=== PATIENT | female | born 1940 | race Caucasian/White ===

== ENCOUNTER 2020-06-20 12:16 | Outpatient (CLI) | payer MEDICARE, SELFPAY ==
--- NOTE | ~2020-06-20 | DEXA_ITS ---
BMD(1) Young-Adult(2) Age-Matched(3) Region (g/cm2) T-score Z-score WHO Classification L1 1.206 0.5 2.6 Normal L2 1.365 1.3 3.3 Normal L3 1.373 1.3 3.3 Normal L4 1.363 1.1 3.2 Normal L1-L4 1.328 1.1 3.1 Normal Trend: L1-L4 Change vs Change vs Measured Age BMD(1) Baseline Previous Date (years) (g/cm2) (%) (%) 06/20/2020 [age] 1.328 -12.5* -12.5* 04/07/2016 [age] 1.517 baseline - * - Indicates significant change based on 95% confidence interval. 1 - Statistically 68% of repeat scans fall within 1SD (+- 0.010 g/cm2 for AP Spine L1-L4) 2 - [place] (Combined NHANES (ages 20-30) / Rebiotix (ages 20-40)) AP Spine Reference Population (v112) 3 - Matched for Age, Weight (females 25-100 kg), Ethnic 11 - World Health Organization - Definition of Osteoporosis and Osteopenia for Women: Normal = T-score at or above -1.0 SD; Osteopenia = T-score between -1.0 and -2.5 SD; Osteoporosis = T-score at or below -2.5 SD; (WHO definitions only apply when a young healthy Women reference database is used to determine T-scores.) Printed: 06/20/2020 12:53:17 PM (13.60)76:3.00:50.00:12.0 0.00:8.70 0.60x1.05 19.0:%Fat=24.3% 0.00:0.00 0.00:0.00 Filename: [email or web address] Scan Mode: Standard;Shoopcan 37.0 [employer] [id number] BMD(1) Young-Adult(2,7) Age-Matched(3) Region (g/cm2) T-score Z-score WHO Classification Neck Left 0.672 -2.6 -0.3 Osteoporosis Right 0.641 -2.9 -0.5 Osteoporosis Mean 0.656 -2.7 -0.4 Osteoporosis Difference 0.030 -0.2 -0.2 - Total Left 0.637 -2.9 -0.7 Osteoporosis Right 0.642 -2.9 -0.7 Osteoporosis Mean 0.640 -2.9 -0.7 Osteoporosis Difference 0.005 0.0 0.0 - Hip Wilson Length Comparison (mm) (Right = 103.5 mm) (Mean = 107.8 mm) (Left = 104.6 mm) Trend: Total Mean Change vs Change vs Measured Age BMD(1) Baseline Previous Date (years) (g/cm2) (%) (%) 06/20/2020 [age] 0.640 -30.7* -22.1* 09/19/2013 [age] 0.822 -10.9* -10.9* 08/23/2011 70.7 0.923 baseline - * - Indicates significant change based on 95% confidence interval. 1 - Statistically 68% of repeat scans fall within 1SD (+- 0.010 g/cm2 for DualFemur Total) 2 - [place] (Combined NHANES (ages 20-30) / Rebiotix (ages 20-40)) Femur Reference Population (v112) 3 - Matched for Age, Weight (females 25-100 kg), Ethnic 7 - DualFemur Total T-score difference is 0.0. Asymmetry is None. 11 - World Health Organization - Definition of Osteoporosis and Osteopenia for Women: Normal = T-score at or above -1.0 SD; Osteopenia = T-score between -1.0 and -2.5 SD; Osteoporosis = T-score at or below -2.5 SD; (WHO definitions only apply when a young healthy Women reference database is used to determine T-scores.) Printed: 06/20/2020 12:53:17 PM (13.60); Filename: [email or web address]; Right Femur; 16.7:%Fat=30.5%; Neck Angle (deg)= 59; Scan Mode: Standard 37.0 uGy; Left Femur; 16.1:%Fat=30.7%; Neck Angle (deg)= 68; Scan Mode: Standard 37.0 uGy [employer] [id number] Dear Po Dubose, Your patient Shun Lorenzo completed a BMD test on 06/20/2020 using the [employer] DXA System (analysis version: 13.60) manufactured by [employer]. The following summarizes the results of our evaluation. PATIENT BIOGRAPHICAL: Na
== END 2020-06-20 12:17 | disposition home or self-care (01) ==
LOC: CHSIMG 12:17
PROVIDERS: PCP Internal Medicine; Visit Provider Internal Medicine
DX: M81.0 Age-related osteoporosis without current pathological fracture (principal)
CPT/HCPCS: 77080

== ENCOUNTER 2020-06-30 11:45 | Outpatient (CLI) | payer MEDICARE, SELFPAY ==
--- NOTE | ~2020-06-30 | XR_ITS ---
XR hip LT min 2V DATE: 06/30/2020 12:21 INDICATION: Left hip pain TECHNIQUE: AP, lateral, crosstable lateral views of left hip COMPARISON: None FINDINGS: No fracture or dislocation, avascular necrosis or bone destruction of the left hip. There i s prominent osteoarthritic change including prominent spurring at the left hip joint. Normal alignment at the left sacroiliac joint and pubic symphysis. Moderate osteopenia is suggested. IMPRESSION: Left to posterior arthritis Osteopenia Reviewed, dictated and finalized at location B.
== END 2020-06-30 11:46 | disposition home or self-care (01) ==
LOC: CHSIMG 11:50
PROVIDERS: PCP Family Medicine; Visit Provider Family Medicine
DX: M25.552 Pain in left hip (principal)
CPT/HCPCS: 73502

== ENCOUNTER 2020-08-08 08:57 | Outpatient (CLI) | payer MEDICARE, SELFPAY ==
--- NOTE | 2020-08-08 09:10 | PC.NURSE ---
PT TO ROOM 202 AMB PER SELF. A&OX3. PROLIA INSTRUCTIONS GIVEN WRITTEN AND ORALLY. PT STATES UNDERSTANDING. INJECTION GIVEN PER PROTOCOL PT TOLERATED WELL. WAITED 15 MINUTES TO MONITOR FOR REACTION. NO REACTION NOTED. PT DISCHARGED TO HOME AMB PER SELF WITHOUT COMPLAINTS.
[2020-08-08] MEDS: DENOSUMAB 60 MG/ML SYRINGE SUB-Q (09:13)
== END 2020-08-08 08:58 | disposition home or self-care (01) ==
PROVIDERS: PCP Internal Medicine; Visit Provider Internal Medicine
DX: M81.0 Age-related osteoporosis without current pathological fracture (principal)
CPT/HCPCS: 96372; J0897

== ENCOUNTER 2020-10-27 13:26 | Outpatient (CLI) | payer MEDICARE, SELFPAY ==
--- NOTE | ~2020-10-27 | MM_ITS ---
EXAMINATION: MM screening shade BI w bradley HISTORY: Screening mammogram TECHNIQUE: Craniocaudal and mediolateral oblique 3-D tomosynthesis images were obtained and synthetic 2-D images were generated. CAD analysis was submitted and interpreted. COMPARISON: 10/26/2019, 10/23/2018 bilateral digital screening mammogram examinations BREAST PARENCHYMAL COMPOSITION: There are scattered areas of fibroglandular density. FINDINGS: Chronic left breast volume loss and focal calcified fat necrosis and retraction secondary t o left partial mastectomy for breast malignancy. There is no evidence of suspicious mass, calcificat ion, or architectural distortion to suggest malignancy in either breast. There has been no suspicious interval change. IMPRESSION: 1. No mammographic evidence of malignancy. 2. Recommend routine screening mammography in one year. BI-RADS Category 2: Benign finding(s). Reviewed, dictated and finalized at location A. GEMENT LIAISON
== END 2020-10-27 13:27 | disposition home or self-care (01) ==
PROVIDERS: PCP Internal Medicine; Visit Provider Internal Medicine
DX: Z12.31 Encounter for screening mammogram for malignant neoplasm of breast (principal)
CPT/HCPCS: 77063; 77067

== ENCOUNTER 2021-06-12 07:11 | Outpatient (CLI) | payer MEDICARE, SELFPAY ==
--- NOTE | ~2021-06-12 | CT_ITS ---
EXAMINATION: CT chest abdomen pelvis w con DATE: 06/12/2021 08:35 INDICATION: Unexplained weight loss. History of breast cancer. TECHNIQUE: Computed tomography (CT) of the chest, abdomen, and pelvis was performed with 100 cc Omnip aque 350 intravenous contrast. Automated exposure control and iterative reconstruction technique were employed. Exam dose: 397.22 mGy-cm total exam DLP. COMPARISON: 11/19/2015 chest 2 view examination FINDINGS: CHEST CT: Postsurgical changes of the left breast. Calcified left lower lobe pulmonary granuloma. Scattered occasional approximately 4 mm or smaller non specific pulmonary opacities. No pulmonary infiltrate or consolidation. Normal heart size. No pericardial or pleural effusion. No thoracic aortic aneurysm or dissection. There is aortic and great vessel calcification. There is s ome shoddy nonenlarged superior mediastinal and prevascular lymph nodes. No hilar mass lesion or lymp hadenopathy. ABDOMEN/PELVIS CT: The gallbladder is distended. No gallbladder wall thickening or pericholecystic fluid or fat strandin g is detected. No hepatic space-occupying mass lesion or bile duct dilatation. No pancreatic mass lesion or ductal d ilatation. Normal splenic size. Normal morphology of the left adrenal gland. Approximately 1.5 cm right adrenal myelolipoma. The right kidney is absent. There is prominent left renal atrophy. There is extensive left nephrolithiasis. 7.5, 7 and 14 mm left renal cysts. No left ureteral calculus or hydroureteronephrosis. Retroverted uterus. The adnexal areas are unremarkable. There are at least 2 and possibly more intraluminal nondependent soft tissue lesions of the urinary b ladder, measuring up to 2.4 x 1.5 cm dimension, suggesting urinary bladder malignancy. Urological con sultation is recommended. There is fluid distention of much of the small bowel, with small bowel air-fluid levels. Consider sma ll bowel series. Diverticulosis of the sigmoid and descending colon; no CT evidence of diverticulitis. The tortuous si gmoid colon is somewhat difficult to track. Given the history of unexplained weight loss, consider ba rium enema or colonoscopy. No intraperitoneal free air. Infrarenal abdominal aortic aneurysm measures up to approximately 3.3 cm dimension. No intraperitoneal or retroperitoneal or pelvic mass lesion or adenopathy or ascites is evident. Degenerative changes of the cervical, thoracic and lumbar spine. There are prominent degenerative deborah nges of the apophyseal joints of the lumbar and lumbosacral area with associated grade 1 anterolisthe sis at L4-5. Prominent degenerative disc disease is noted at L2-3 and L5-S1. Bilateral hip osteoarthritis. IMPRESSION: Multiple up to 2.4 cm intraluminal bladder masses, suggesting bladder malignancy. Urolog y consultation is recommended Status post left partial mastectomy for breast cancer 1.5 cm right adrenal myelolipoma Absent right kidney Prominent left renal atrophy Left renal cysts measuring up to 14 mm Extensive left nephrolithiasis; no ureteral calculus or hydroureteronephrosis Retroverted uterus Diverticulosis of the left colon; no CT evidence of diverticulitis Fluid levels are noted in the small bowel and colon; consider small bowel series and barium enema or colonoscopy as clinically appropriate Reviewed, dictated and finalized at Location A. Reviewed, dictated and finalized at location B. IMPRESSION: Multiple up to 2.4 cm intraluminal bladder masses, suggesting blad erica malignancy. Urology consultation is recommended Status post left partial mastectomy for breast cancer 1.5 cm right adrenal myelolipoma Absent right kidney Prominent left renal atro
[2021-06-12 07:52] LABS: Estimated Glomerular Filt Rate 12
== END 2021-06-12 07:12 | disposition home or self-care (01) ==
PROVIDERS: PCP Internal Medicine; Visit Provider Internal Medicine
DX: Z85.3 Personal history of malignant neoplasm of breast (principal); R63.4 Abnormal weight loss; Z99.2 Dependence on renal dialysis
CPT/HCPCS: 71260; 74177; Q9967

== ENCOUNTER 2021-07-23 13:09 | Outpatient (CLI) | payer MEDICARE, SELFPAY ==
--- NOTE | ~2021-07-23 | CT_ITS ---
EXAMINATION: CT abdomen pelvis w con DATE: 07/23/2021 14:15 INDICATION: Generalized abdominal pain. Diarrhea. TECHNIQUE: Computed tomography (CT) of the abdomen and pelvis was performed with 100 mL Omnipaque 350 intravenous contrast. Automated exposure control and iterative reconstruction technique were employe d. The dose-length product was 390.92 mGy-cm. COMPARISON: CT abdomen and pelvis 06/12/2021 FINDINGS: The visualized portions of the lung bases demonstrate mild atelectasis. No pleural effusion . The heart size is normal. There are coronary artery calcifications. No pericardial effusion. The li flavio is normal. The gallbladder is distended. The spleen, pancreas, and adrenal glands are normal. Rig ht kidney is absent. There is severe atrophy of left kidney. There are cysts in left kidney measuring up to 9 mm. 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 Stool distends the rectum. There is liquid stool in the colon correlating with the symptom of diarrhea. The appendix is not visualized. T here is mild mesenteric lymphadenopathy. There is a 3.5 cm fusiform infrarenal aortic aneurysm. There is a small volume of pelvic ascites. Body wall edema is noted. Again seen are masses in the bladder. There is subcutaneous inflammation superficial to the sacrum and coccyx. No evidence of osteomyeliti s. There is severe lumbar spondylosis. IMPRESSION: 1. Masses in the bladder suspicious for urothelial carcinoma. 2. Gallbladder distention, which may secondary to fasting. Correlate with physical exam to exclude ac newtok cholecystitis. 3. 3.5 cm fusiform infrarenal aortic aneurysm. 4. Small volume of pelvic ascites. Reviewed, dictated and finalized at location A. IMPRESSION: 1. Masses in the bladder suspicious for urothelial carcinoma. 2. Gallbladder distention, which may secondary to fasting. Correlate with physi tony exam to exclude acute cholecystitis. 3. 3.5 cm fusiform infrarenal aortic aneurysm. 4. Small volume of pelvic ascites.
[2021-07-23 13:36] LABS: Hematocrit 29.3 % (35.0-42.0); Hemoglobin 9.9 g/dL (11.7-13.8); Mean Corpuscular HGB Conc 33.8 g/dL (32.0-36.0); Mean Corpuscular Hemoglobin 34.5 pg (27.0-31.0); Mean Corpuscular Volume 102.1 fL (78.0-102.0); Mean Platelet Volume 8.8 fl (9.2-11.8); Platelet Count Result 200 K/mm3 (150-420); Red Blood Count 2.87 M/mm3 (4.20-5.40); Red Cell Distribution Width 12.6 % (11.6-14.4)
[2021-07-23 13:44] LABS: Estimated Glomerular Filt Rate 18; White Blood Count 27.9 K/mm3 (4.8-10.8)
[2021-07-23 13:53] LABS: Lactic Acid 1.1 mmol/L (0.4-2.0)
[2021-07-23 14:27] LABS: Band Neutrophils Percent 0 % (0-6); Lymphocytes Absolute Manual 1.39 K/mm3 (1.1-4.5); Lymphocytes Percent Manual 5 % (18-44); Monocytes Absolute Manual 0.55 K/mm3 (0.1-0.90); Monocytes Percent Manual 2 % (3-9); Neutrophils Absolute Manual 25.94 K/mm3 (1.7-7.2); Neutrophils Percent Manual 93 % (46-73); Platelet Estimate Adequate (Adequate); Total Cells Counted 100
== END 2021-07-23 13:10 | disposition home or self-care (01) ==
PROVIDERS: PCP Internal Medicine; Visit Provider Internal Medicine
DX: R19.7 Diarrhea, unspecified (principal); D72.829 Elevated white blood cell count, unspecified; R63.4 Abnormal weight loss; N32.89 Other specified disorders of bladder
CPT/HCPCS: 74177; 83605; 85025; 85060; 87040; Q9967

== ENCOUNTER 2021-07-24 13:38 | Outpatient (NON) | payer MEDICARE, SELFPAY | END 2021-07-24 13:39 | disposition home or self-care (01) | LOC: CHSLAB 13:40 | PROVIDERS: Visit Provider Internal Medicine | DX: R19.7 Diarrhea, unspecified (principal); D72.829 Elevated white blood cell count, unspecified; R63.4 Abnormal weight loss | CPT/HCPCS: 87045; 87324; 87427 ==

== ENCOUNTER 2021-07-28 07:36 | Outpatient (CLI) | payer MEDICARE, SELFPAY ==
--- NOTE | ~2021-07-28 | US_ITS ---
EXAMINATION: US arterial ankle brachial ind DATE: 07/28/2021 13:31 INDICATION: Peripheral arterial occlusive disease to the bilateral lower limbs lower limb swelling. TECHNIQUE: Segmental pressures and plethysmographic and Doppler waveforms of the brachial and lower e xtremity arteries were obtained. COMPARISON: None. FINDINGS: Left brachial artery pressure of 90 mm Hg. The right brachial artery pressure was unable to be obtain ed due to the presence of a reported right upper arm dialysis graft. The right ankle-brachial index (MENDOZA) is 1.13 (normal >= 0.9-1.0). The right great toe-brachial index (TBI) is 0.58 (normal >= 0.65). Arterial Doppler waveforms are biphasic with brisk systolic upstrokes at both the right posterior tibial and dorsalis pedis arteries. The left MENDOZA is 1.00. The left TBI is 0.60. Arterial Doppler waveforms are biphasic with brisk systol ic upstrokes at both the left posterior tibial and dorsalis pedis arteries. IMPRESSION: 1. 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 Reviewed, dictated and finalized at location A. IMPRESSION: 1. Mild arterial occlusive disease to bilateral lower limbs with mildly decreas ed bilateral TBIs.
[2021-07-28 07:50] LABS: Basophils Absolute Auto 0.03 K/mm3 (0.00-0.10); Basophils Percent Auto 0.3 % (0.0-1.0); Eosinophils Absolute Auto 0.19 K/mm3 (0.02-0.50); Eosinophils Percent Auto 1.8 % (1.0-6.0); Hematocrit 29.1 % (35.0-42.0); Hemoglobin 9.3 g/dL (11.7-13.8); Immature Granulocyte Absolute 0.15 K/mm3 (0.00-0.00); Immature Granulocyte Percent A 1.4 % (0.0-0.0); Lymphocytes Absolute Auto 1.08 K/mm3 (1.10-4.50); Lymphocytes Percent Auto 10.4 % (18.0-42.0); Mean Corpuscular Hemoglobin 33.7 pg (27.0-31.0); Mean Corpuscular Volume 105.4 fL (78.0-102.0); Monocytes Absolute Auto 0.54 K/mm3 (0.10-0.90); Monocytes Percent Auto 5.2 % (2.0-11.0); Neutrophils Absolute Auto 8.4 K/mm3 (1.7-7.2); Neutrophils Percent Auto 80.9 % (50.0-70.0); Platelet Count Result 165 K/mm3 (150-420); Red Blood Count 2.76 M/mm3 (4.20-5.40); Red Cell Distribution Width 13.7 % (11.6-14.4); White Blood Count 10.4 K/mm3 (4.8-10.8)
[2021-07-28 08:04] LABS: Alanine Aminotransferase 56 U/L (14-59); Albumin Level 1.6 g/dL (3.4-5.0); Alkaline Phosphatase 148 U/L (46-116); Anion Gap 3 mmol/L (8-16); Aspartate Amino Transferase 60 U/L (15-37); Bilirubin,Total 0.2 mg/dL (0.00-1.00); Blood Urea Nitrogen 27 mg/dL (7-18); Calcium 6.5 mg/dL (8.5-10.1); Carbon Dioxide 32 mmol/L (21-32); Chloride 105 mmol/L (98-108); Estimated Glomerular Filt Rate 12; Glucose 154 mg/dL (70-99); Osmolality Calculated 298 mOsm/kg (285-295); Potassium 3.4 mmol/L (3.5-5.1); Sodium 140 mmol/L (136-145); Total Protein 4.7 g/dL (6.4-8.2)
== END 2021-07-28 07:37 | disposition home or self-care (01) ==
PROVIDERS: PCP Internal Medicine; Visit Provider Internal Medicine
DX: I73.9 Peripheral vascular disease, unspecified (principal); A41.9 Sepsis, unspecified organism
CPT/HCPCS: 36415; 80053; 85025; 93922

== ENCOUNTER 2021-08-27 17:55 | Emergency (ER) | payer MEDICARE, SELFPAY ==
[2021-08-27 18:19] VITALS: BP 134/82; PULSE 99; RESP 20; TEMP 36.7; O2SAT 97
--- NOTE | 2021-08-27 18:36 | ED.NAVMDI ---
HPI - Nausea/Vomiting/Diarrhea General Chief complaint: Nausea/Vomiting/Diarrhea Stated complaint: vomitting Source: patient and family History of Present Illness HPI Narrative: this is an 80-year-old female that presents with some history of end-stage renal disease on hemodialysis was dialyzed earlier today patient has been having some nausea over the last couple of days and had decreased appetite, currently no nausea no vomiting no abdominal pain no fever chills no diarrhea constipation no chest pain no shortness of breath. Pertinent past history: anorexia Onset (ago): week(s) Related Data Allergies Allergy/AdvReac Type Severity Reaction Status Date / Time tape Allergy Itching Uncoded 08/27/21 18:32 Review of Systems Review of Systems: All systems reviewed & are unremarkable except as noted in HPI and below PMFSH Past Medical History Medical History End stage renal disease Exam Const: General: no acute distress and alert Orientation/consciousness: patient oriented x3 HENMT: Head: normal to inspection Eyes: Pupils: Equal, round and reactive pupils present EOM: EOMs intact bilaterally Direct Ophthalmoscopy: no photophobia Neck: Neck: normal visual inspection, no lymphadenopathy and no meningeal signs Cardio: Rate: regular rate Rhythm: regular rhythm GI: GI Palp: Yes Soft to palpation Percussion: Yes normal to percussion Extrem: General: normal to inspection and no pedal edema Psych: Mental Status: mental status grossly normal Affect: normal affect Thought content: Yes Normal thought content present Course Course Emergency Course: patient resting comfortably currently no nausea or vomiting will give her a dose of Zofran and asked patient to follow-up with primary care physician in the morning. Vital Signs Vital signs: Vital Signs Temperature 36.7 C 08/27/21 18:19 Pulse Rate 99 08/27/21 18:19 Respiratory Rate 08/27/21 18:19 Blood Pressure 134/82 08/27/21 18:19 Pulse Oximetry 97 08/27/21 18:19 Temperature 36.7 C 08/27/21 18:19 Pulse Rate 99 08/27/21 18:19 Respiratory Rate 20 08/27/21 18:19 Blood Pressure 134/82 08/27/21 18:19 Pulse Oximetry 97 08/27/21 18:19 Critical Care Time Critical Care Time Critical Care Time: No Discharge Plan Discharge Clinical Impression: Nausea Patient Disposition: Home, Self-Care Condition: Stable Instructions: Antibiotic Form, Acute Nausea and Vomiting (ED) Additional Instructions: advised to follow-up with primary care physician in the morning further evaluation treatment. Follow-up/Referrals: Po Dubose MD [Primary Care Provider] - Time of Disposition: 18:39
[2021-08-27] MEDS: ONDANSETRON HCL ODT 4 MG TABLET PO (19:00)
[2021-08-27 19:04] VITALS: BP 120/82; PULSE 98; RESP 20; TEMP 36.7; O2SAT 98
== END 2021-08-27 19:04 | disposition home or self-care (01) ==
PROVIDERS: Emergency Provider Emergency Medicine; PCP Internal Medicine
DX: R11.0 Nausea (principal); N18.6 End stage renal disease; Z99.2 Dependence on renal dialysis
CPT/HCPCS: 99282; 99283; A9270